=== PATIENT | female | born 1925 | race Caucasian/White ===

== ENCOUNTER 2017-03-26 12:43 | Emergency (ER) | payer OTHER, MEDICAID ==
[~2017-03-26] VITALS: Ht 129.5 cm; Wt 54.9 kg
[~2017-03-26 12:43] MED LIST: ACET-1010 PO; DILT300C3 PO; DOCU-144 PO; MELO15TA13 PO; OMEP20CA4 PO; PRO20 PO; TELM80TA4 PO; TEMA15CA51 PO; TIMO5DRO4 OP
[2017-03-26 13:00] VITALS: BP_SYST 141
[2017-03-26 14:17] LABS: BASOPHILS % (AUTO) 0.9 % (0.0-2.0); EOSINOPHILS % (AUTO) 0.6 % (0.0-4.0); HEMATOCRIT 38.6 % (36-48); HEMOGLOBIN 12.6 g/dL (12.0-16.0); LYMPHOCYTES # (AUTO) 1.1 K/uL (1.0-5.5); LYMPHOCYTES % (AUTO) 22.9 % (20.5-51.5); MEAN CORPUSCULAR HEMOGLOBIN 29 pg (27-31); MEAN CORPUSCULAR HGB CONC 33 % (32-36); MEAN CORPUSCULAR VOLUME 89 fL (79.0-98.0); MONOCYTES # (AUTO) 0.5 K/uL (0.0-1.0); MONOCYTES % (AUTO) 10.7 % (1.7-9.3); NEUTROPHILS # (AUTO) 3.1 K/uL (1.8-7.7); NEUTROPHILS % (AUTO) 64.9 % (40.0-70.0); PLATELET COUNT (AUTO) 232 K/uL (130-430); RED BLOOD CELL COUNT(AUTO) 4.32 MIL/uL (4.2-6.2); RED CELL DISTRIBUTION WIDTH 13.6 % (9.0-15.0); WHITE BLOOD COUNT (AUTO) 4.7 K/uL (4.8-10.8)
[2017-03-26 14:28] LABS: CHLORIDE 103 mmol/L (98-107); CREATININE 0.88 mg/dL (0.55-1.30); GLUCOSE 107 mg/dL (70-99); POTASSIUM 3.6 mmol/L (3.5-5.1); SODIUM SERUM 131 mmol/L (136-145); UREA NITROGEN, BLOOD 14 mg/dL (8-21)
[2017-03-26 14:29] LABS: ANION GAP < 3 (5-15)
[2017-03-26 14:34] LABS: TOTAL BILIRUBIN 0.4 mg/dL (0.0-1.0)
[2017-03-26 14:35] LABS: ASPARTATE AMINOTRANSFERASE 17 U/L (10-37)
[2017-03-26 14:37] LABS: ALANINE AMINOTRANSFERASE 10 U/L (12-78); ALBUMIN 3.8 g/dL (3.4-4.8); TOTAL PROTEIN, SERUM 7.1 g/dL (6.4-8.3)
[2017-03-26 15:50] VITALS: BP_SYST 135
== END 2017-03-26 15:50 | disposition home or self-care (01) ==
LOC: SED 12:43
DX: S63.501A Unspecified sprain of right wrist, initial encounter (principal); S00.93XA Contusion of unspecified part of head, initial encounter; K21.9 Gastro-esophageal reflux disease without esophagitis; I10 Essential (primary) hypertension; F03.90 Unspecified dementia, unspecified severity, without behavioral disturbance, psychotic disturbance, mood disturbance, and anxiety; Z88.0 Allergy status to penicillin; Z88.5 Allergy status to narcotic agent; Z88.1 Allergy status to other antibiotic agents; Z88.6 Allergy status to analgesic agent; Z79.899 Other long term (current) drug therapy; W06.XXXA Fall from bed, initial encounter; Y93.84 Activity, sleeping; Y92.89 Other specified places as the place of occurrence of the external cause; Y99.8 Other external cause status
CPT/HCPCS: 36415; 70450-TC; 72125-TC; 73090; 80053; 85025; 85610-TC; 85730-TC; 99285